=== PATIENT | male | born 1990 | race Caucasian/White ===

== ENCOUNTER → 2019-12-21 11:26 | Outpatient (BNVA) | payer SELFPAY | PROVIDERS: Family Provider Nurse Practitioner; PCP Family Medicine; Visit Provider Family Medicine | DX: R05 Cough (principal); J20.9 Acute bronchitis, unspecified; J45.21 Mild intermittent asthma with (acute) exacerbation | CPT/HCPCS: 87804 ==

== ENCOUNTER → 2020-08-10 10:49 | Outpatient (BNVA) | payer OTHER, SELFPAY | PROVIDERS: Family Provider Nurse Practitioner; PCP Family Medicine; Visit Provider Family Medicine | DX: Z00.00 Encounter for general adult medical examination without abnormal findings (principal); E78.00 Pure hypercholesterolemia, unspecified; F41.9 Anxiety disorder, unspecified; F32.9 Major depressive disorder, single episode, unspecified | CPT/HCPCS: 80061 ==

== ENCOUNTER → 2021-11-07 14:00 | Outpatient (BNVA) | payer OTHER, SELFPAY | PROVIDERS: Family Provider Nurse Practitioner; PCP Family Medicine; Visit Provider Nurse Practitioner Family | DX: Z20.822 Contact with and (suspected) exposure to COVID-19 (principal) | CPT/HCPCS: 87635 ==

== ENCOUNTER 2022-12-30 07:03 | Emergency (ER) | payer SELFPAY ==
[2022-12-30 07:10] VITALS: BP 160/95; PULSE 92; RESP 16; TEMP 36.6; O2SAT 99
--- NOTE | 2022-12-30 07:15 | ECG_ITS ---
[facility] Test Date: 2022-12-30 Pat Name: Tigre Mcguire Department: Room: Gender: Male University Counselor: : 1990 Requested By: Kelly David Order Number: [id number] [place] MD: Willie Sandoval M.D. Measurements Intervals [place] Rate: 85 P: 72 [place]: 146 QRS: 87 QRSD: 100 T: 59 QT: 358 QTc: 427 Interpretive Statements SINUS RHYTHM WITH SINUS ARRHYTHMIA No previous ECG available for comparison Electronically Signed On 12-30-2022 11:20:11 PROFESSOR OF LITERACY by Willie Sandoval M.D. [id number]
--- NOTE | 2022-12-30 07:16 | XRR_ITS ---
PROCEDURE INFORMATION: Exam: XR Chest Exam date and time: 12/30/2022 7:28 AM Age: 32 years old Clinical indication: Pain; Angina pectoris; Additional info: Chest pain TECHNIQUE: Imaging protocol: Radiologic exam of the chest. Views: 1 view. COMPARISON: No relevant prior studies available. FINDINGS: Lungs: Unremarkable. No consolidation. Pleural spaces: Unremarkable. No pleural effusion. No pneumothorax. Heart/Mediastinum: Unremarkable. No cardiomegaly. Bones/joints: Unremarkable. XR/XR chest 1V portable [id number] IMPRESSION: No acute findings.
--- NOTE | 2022-12-30 07:16 | W.ED.CHESTPA ---
HPI - Chest Pain General: Chief Complaint: Chest Pain Stated Complaint: chest pressure and pain Time Seen by Provider: 12/30/22 07:04 Source: patient Mode of arrival: ambulatory Limitations: no limitations History of Present Illness: Patient is a 32-year-old male who presents to ED today with a complaint of chest pain that began when he awoke this morning. Patient states pain is located to the lower portion of his substernal region with no radiation. He states he felt like chest pain slightly worsened when he ate breakfast and swallowed his food this morning. He states upon arrival to the ED his pain has improved when compared to onset. He does report a history of GERD but states this pain felt different. He denies shortness of breath. No URI symptoms/cough. No fevers. Denies numbness/tingling/loss of sensation to his upper extremities. No palpitations. MD complaint: chest pain Onset (ago): hour(s) Prior episodes: No Onset: awoke with symptoms Pain location: substernal and epigastric Pain radiation: none Severity: mild Relieving factors: nothing Exacerbating factors: other (swallowing) Associated symptoms: Deny abdominal pain, dyspnea, fever(s), nausea, palpitations, syncope or vomiting Treatment prior to arrival: none Risk Factors: Coronary artery disease risk factors: smoking history (quit about a month ago) Thoracic aortic dissection risk factors: none Review of Systems Const: Denies: fever(s), chills, body aches, fatigue or malaise ENMT: Denies: throat pain or odynophagia Card: Reports: chest pain; Denies: palpitations, irregular heart rhythm, edema, swelling of feet/ankles, lightheadedness, syncope, pre-syncope, dyspnea on exertion, orthopnea, leg pain with exertion or acrocyanosis Resp: Denies: dyspnea, productive cough, non-productive cough, wheezing, pain on inspiration, hemoptysis or chest congestion GI: Denies: abdominal pain, nausea, vomiting or diarrhea Musc: Denies: neck pain Neuro: Denies: headache(s), numbness in extremities, weakness in extremities, sensory changes or dizziness [facility] ED PFSH: Medical History Acute bronchitis Anxiety and depression Hypercholesteremia Surgical History History of surgery on arm Social History Smoking and tobacco status: current every day smoker Alcohol intake: never Physical Exam Const: COMMON NORMALS: no acute distress, average body habitus, patient oriented x3, no limitations, healthy appearing, alert and well nourished GENERAL APPEARANCE: cooperative ORIENTATION/CONSCIOUSNESS: Yes awake, Yes oriented to person, Yes oriented to place and Yes oriented to time HENMT: COMMON NORMALS: normocephalic and atraumatic HEAD & SCALP: normal to inspection, normocephalic and atraumatic Neck/C-Spine: COMMON NORMALS: full ROM, no lymphadenopathy, no meningeal signs and No carotid bruits GENERAL: Yes normal visual inspection, No anterior neck swelling, No tracheal deviation and No submandibular swelling Chest: COMMONS NORMALS: normal inspection of the chest and normal palpation of entire chest wall Resp: COMMON NORMALS: normal respiratory effort and clear to auscultation bilaterally AUSCULTATION: clear to auscultation bilaterally Cardio: COMMON NORMALS: regular rate and regular rhythm RATE: regular rate RHYTHM: regular rhythm GI: COMMON NORMALS: Normal to inspection, nondistended, normoactive bowel sounds present, Soft to palpation, No hepatosplenomegaly present and no masses INSPECTION: Yes normal to inspection AUSCULTATION: Yes normoactive bowel sounds PALPATION: Yes Soft to palpation, Yes Tenderness to palpation present (GI) (mild epigastric ), No Guarding due to palpation present (GI), No Rigid due to palpation and Yes No hepatosplenomegaly present : COMMON NORMALS: Yes no CVA tenderness BLADDER/KIDNEY EXAM: Yes no CVA tenderness Back/Pelvis: COMMON NORMALS: no CVA tenderness, thoracic and lumbar spine normal to inspection, no thoracic nor lumbar tenderness and thoraco-lumbar ROM normal Extremity: COMMON NORMALS: normal to inspection GENERAL: Yes normal exam except as noted Neuro: FLAVIA COMA SCALE: document GCS findings [place] coma scale eye opening: Spontaneous [place] coma scale verbal response: Orientated [place] coma scale motor response: Obey commands [place] coma scale total score: 15 COMMON NORMALS: patient oriented x3, moves all extremities, no focal motor deficits, no sensory deficits noted and gait normal SENSORIUM/ORIENTATION: Yes alert, Yes oriented to person, Yes oriented to place and Yes oriented to time MENINGEAL SIGNS: Yes no meningeal signs Skin: COMMON NORMALS: no rashes or lesions noted GENERAL SKIN EXAM: no rashes or lesions noted Course Vital Signs: Vital signs: Vital Signs Temperature 97.9 F 12/30/22 07:10 Pulse Rate 92 12/30/22 07:10 Respiratory Rate 16 12/30/22 07:10 Blood Pressure 160/95 12/30/22 07:10 Pulse Oximetry 99 12/30/22 07:10 Oxygen Delivery Me thod 12/30/22 07:10 MDM - Chest Pain Medical Decision Making Patient appears in NAD. He states GI cocktail slightly helped his pain. EKG showing no ischemic changes. Trop negative. CXR negative. Vitals normal. No risk factors/low probability for PE on [place] Criteria. Recommend he follow up with PCP in 2-3 days if symptoms persist. Return to ED precautions given. Lab Data 12/30/22 07:39 12/30/22 07:39 Radiology Impressions Chest X-Ray 12/30/22 07:16 IMPRESSION: No acute findings. Laboratory Results WBC 7.2 10^3/uL (4.0-10.0) 12/30/22 07:39 RBC 5.85 10^6/uL (4.1-5.3) H 12/30/22 07:39 Hgb 16.8 g/dL (11.7-16.6) H 12/30/22 07:39 Hct 49.6 % (42.0-52.0) 12/30/22 07:39 MCV 84.8 fl (80-94) 12/30/22 07:39 MCH 28.7 pg (28.0-34.0) 12/30/22 07:39 MCHC 33.9 g/dL (30.0-36.0) 12/30/22 07:39 RDW 12.2 % (12.1-15.1) 12/30/22 07:39 Plt Count 320 10^3/cmm (130-400) 12/30/22 07:39 MPV 9.4 fL (7.4-10.4) 12/30/22 07:39 Neut % (Auto) 63.0 % 12/30/22 07:39 Lymph % (Auto) 23.8 % 12/30/22 07:39 [place] % (Auto) 8.8 % 12/30/22 07:39 Eos % (Auto) 2.4 % 12/30/22 07:39 Baso % (Auto) 1.3 % 12/30/22 07:39 Neut # (Auto) 4.51 10^3/uL (1.8-7.7) 12/30/22 07:39 Lymph # (Auto) 1.7 10^3/uL (0.8-4.8) 12/30/22 07:39 [place] # (Auto) 0.6 10^3/uL (0.2-0.9) 12/30/22 07:39 Eos # (Auto) 0.2 10^3/uL (0.0-0.8) 12/30/22 07:39 Baso # (Auto) 0.1 10^3/uL (0.0-0.1) 12/30/22 07:39 Nucleated RBC % (auto) 0 % 12/30/22 07:39 Nucleated RBCs # 0.0 /100WBC 12/30/22 07:39 Sodium 140 mmol/L (136-145) 12/30/22 07:39 Potassium 3.9 mmol/L (3.5-5.1) 12/30/22 07:39 Chloride 102 mmol/L (98-107) 12/30/22 07:39 Carbon Dioxide 28 mmol/L (22-29) 12/30/22 07:39 Anion Gap 13.9 (5-19) 12/30/22 07:39 BUN 10 mg/dL (6-20) 12/30/22 07:39 Creatinine 0.9 mg/dL (0.7-1.2) 12/30/22 07:39 GFR Calculation 97.2 mL/min (90-130) 12/30/22 07:39 Glucose 68 mg/dL (65-115) 12/30/22 07:39 Calculated Osmolality 287 mOsm/kg (285-295) 12/30/22 07:39 Calcium 9.8 mg/dL (8.5-10.5) 12/30/22 07:39 Total Bilirubin 0.4 mg/dL (0.15-1.2) 12/30/22 07:39 AST 18 U/L (0-40) 12/30/22 07:39 ALT 25 U/L (0-41) 12/30/22 07:39 Alkaline Phosphatase 80 U/L (40-130) 12/30/22 07:39 Troponin T Gen 5 ng/L 6 ng/L (0-15) 12/30/22 07:39 Total Protein 7.2 g/dL (6.6-8.7) 12/30/22 07:39 Albumin 4.3 g/dL (3.5-5.2) 12/30/22 07:39 Globulin 2.9 g/dL (1.3-4.6) 12/30/22 07:39 Discharge Plan Discharge Patient Disposition: Home Clinical Impression: Atypical chest pain Condition: Stable Prescriptions: No Action aripiprazole [Abilify] 10 mg tablet 10 mg PO DAILY Qty: 90 3RF lorazepam 1 mg tablet 1 mg PO BID PRN (Reason: anxiety) 30 Days Qty: 30 2RF fluoxetine 20 mg capsule 20 mg PO DAILY Qty: 30 0RF Rx Instructions: planned trial reduction from 40 mg. Discharge Orders: Discharge ED (Routine); Ordered 12/30/22 Ordered By: Kelly David Referrals: Elidia Adame MD [Primary Care Provider] - Coding Level of Care Code ED Urologic Surgeon for Yessy Rosa
[2022-12-30] MEDS: lidocaine 2% viscous 15 ML, aluminum-mag hydrox-simethicon 30 ML, sucralfate oral liq 1 GM PO (07:30)
[2022-12-30 07:45] LABS: Basophils # 0.1 10^3/uL (0.0-0.1); Basophils % 1.3 %; Eosinophils # 0.2 10^3/uL (0.0-0.8); Eosinophils % 2.4 %; Hematocrit 49.6 % (42.0-52.0); Hemoglobin 16.8 g/dL (11.7-16.6); Lymphocytes # 1.7 10^3/uL (0.8-4.8); Lymphocytes % 23.8 %; Mean Corpuscular HGB Conc 33.9 g/dL (30.0-36.0); Mean Corpuscular Hemoglobin 28.7 pg (28.0-34.0); Mean Corpuscular Volume 84.8 fl (80-94); Mean Platelet Volume 9.4 fL (7.4-10.4); Monocytes # 0.6 10^3/uL (0.2-0.9); Monocytes % 8.8 %; Neutrophils # 4.51 10^3/uL (1.8-7.7); Nucleated Red Blood Cells % 0 %; Platelet Count 320 10^3/cmm (130-400); Red Blood Count 5.85 10^6/uL (4.1-5.3); Red Cell Distribution Width 12.2 % (12.1-15.1); White Blood Count 7.2 10^3/uL (4.0-10.0)
[2022-12-30 08:08] LABS: Alanine Aminotransferase 25 U/L (0-41); Albumin Level 4.3 g/dL (3.5-5.2); Alkaline Phosphatase 80 U/L (40-130); Anion Gap 13.9 (5-19); Aspartate Amino Transferase 18 U/L (0-40); Blood Urea Nitrogen 10 mg/dL (6-20); Calcium 9.8 mg/dL (8.5-10.5); Carbon Dioxide 28 mmol/L (22-29); Chloride 102 mmol/L (98-107); Creatinine Clr Calc Pharmacy 141.6574; Globulin 2.9 g/dL (1.3-4.6); Glomerular Filtration Rate 97.2 mL/min (90-130); Glucose 68 mg/dL (65-115); Osmolality Calculated 287 mOsm/kg (285-295); Potassium 3.9 mmol/L (3.5-5.1); Sodium 140 mmol/L (136-145); Total Bilirubin 0.4 mg/dL (0.15-1.2); Total Protein 7.2 g/dL (6.6-8.7)
[2022-12-30 08:09] LABS: Troponin T (5th) Once 6 ng/L (0-15)
== END 2022-12-30 08:44 | disposition home or self-care (01) ==
PROVIDERS: Emergency Provider Physician Assistant; PCP Family Medicine
DX: R07.89 Other chest pain (principal); F17.210 Nicotine dependence, cigarettes, uncomplicated
CPT/HCPCS: 71045; 80053; 84484; 85025; 93005; 99285

== ENCOUNTER → 2025-07-12 12:07 | Outpatient (BNVA) | payer OTHER, SELFPAY | PROVIDERS: PCP Family Medicine; Visit Provider Family Medicine | DX: Z20.2 Contact with and (suspected) exposure to infections with a predominantly sexual mode of transmission (principal) | CPT/HCPCS: 87491; 87591 ==